=== PATIENT | male | born 1980 | race Caucasian/White ===

== ENCOUNTER 2020-02-18 06:43 | Emergency (ER) | payer OTHER ==
[~2020-02-18] VITALS: Ht 172.7 cm; Wt 65.8 kg
[~2020-02-18 06:43] MED LIST: MOBIC7.5 MG PO; PRILOSEC 10MG C10 MG PO; ROBAXIN 750 MG750 M1 PO
[2020-02-18 07:17] LABS: ABSOLUTE LYMPHOCYTES 1.3 thou/uL (0.8-5.3); ABSOLUTE MONOCYTES 0.3 thou/uL (0.0-1.2); ABSOLUTE NEUTROPHILS 3.6 thou/uL (1.6-8.1); BASOPHILS 0.7 %; EOSINOPHILS 0.7 %; HEMATOCRIT 41.9 % (42.0-52.0); HEMOGLOBIN 14.3 gm/dL (14.0-18.0); LYMPHOCYTES 24.3 %; MCH 30.9 pg (26.0-34.0); MCV 90.9 fL (80.0-100.0); MONOCYTES 6.3 %; MPV 8.1 fl. (7.2-11.1); NUCLEATED RBCS 0 /100WBC; PLATELET COUNT* 186 thou/uL (150-400); RBC 4.61 mil/uL (4.50-6.00); RDW-CV 13.3 % (10.5-14.5); WBC 5.3 thou/uL (4.0-11.0)
[2020-02-18 07:26] LABS: CALCIUM 8.6 mg/dL (8.5-10.1); CREATININE 1.2 mg/dL (0.6-1.3); POTASSIUM 3.7 mmol/L (3.5-5.1)
[2020-02-18 07:39] LABS: ALBUMIN 3.9 g/dL (3.4-5.0); CK-MB MASS 0.6 ng/mL (<0.5-3.6); MAGNESIUM 1.8 mg/dL (1.8-2.4); TOTAL BILIRUBIN 1.3 mg/dL (<0.1-1.0); TOTAL PROTEIN 7.5 g/dL (6.4-8.2)
[2020-02-18 07:43] LABS: PROTIME 11.4 Seconds (9.20-11.50)
[2020-02-18 07:44] LABS: APTT 25.7 Seconds (25.0-31.3); INR 1.1
[2020-02-18] MEDS ORDERED: NORCO 5-325 TA1 EAC2 PO (09:11)
[2020-02-18] MEDS ORDERED: IBUPROFEN 800800 M1 PO (09:32)
[2020-02-18] MEDS ORDERED: COLCHICINE0.6 M1 PO (09:38)
[2020-02-18 09:48] VITALS: BP 109/72
--- NOTE | 2020-02-19 17:51 | EKG ---
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1980 Requested By: Ryley Nielsen Order Number: [id number] MD: Remi Whitt Measurements Intervals [place] Rate: 64 P: 75 MD: 128 QRS: 69 QRSD: 96 T: 68 QT: 419 QTc: 433 Interpretive Statements Sinus rhythm RSR' in V1 or V2, probably normal variant ST elevation, consider early repolarization Compared to ECG 02/18/2020 06:47:48 RSR' in V1 or V2 now present Incomplete right bundle-branch block no longer present ST (T wave) deviation still present Electronically Signed On 02-19-2020 17:51:38 CDT by Remi Whitt [email or web address] <ELECTRONICALLY SIGNED> By: Remi Whitt MD, FACC 02/19/20 1751 5 5 Remi Whitt MD, FACC /EPI
--- NOTE | 2020-02-19 17:51 | EKG ---
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1980 Requested By: Krystian Costello Order Number: [id number] MD: Remi Whitt Measurements Intervals [place] Rate: 66 P: 70 RI: 135 QRS: 69 QRSD: 113 T: 52 QT: 404 QTc: 424 Interpretive Statements Sinus rhythm Incomplete right bundle branch block ST elev, probable normal early repol pattern Baseline wander in lead(s) V1 No previous ECG available for comparison Electronically Signed On 02-19-2020 17:51:11 CDT by Remi Whitt [email or web address] <ELECTRONICALLY SIGNED> By: Remi Whitt MD, FACC 02/19/20 1751 0647 0647 Remi hWitt MD, FACC /EPI
== END 2020-02-18 09:49 | disposition home or self-care (01) ==
LOC: M.ERS 06:43
PROVIDERS: Family Medicine
DX: I31.9 Disease of pericardium, unspecified (principal)